=== PATIENT | male | born 1970 | race Caucasian/White ===

== ENCOUNTER 2016-11-29 19:44 | Inpatient (IN) | payer OTHER ==
--- NOTE | ~2016-11-29 | PN ---
Unit #: [id number] #: [id number] Patient: HAILE LIRIANO [id number] [facility] [address] [place] [address] [id number] MR#: [id number] NAME: HAILE LIRIANO ROOM: [facility] Age: 46 Sex: M Admission Date: 11/29/2016 : 1970 Attending Physician: Parmjit Hendrickson M.D. Admitting Physician: Elena Retana PROGRESS NOTES DATE OF SERVICE: 12/03/2016 DISCUSSION Mr. Haile Liriano is a 46-year-old male, seen on 12/03/2016. The patient is tall, well built, continues to be guarded, paranoid, isolative, flat affect, poor hygiene, and grooming. The patient did not show any aggressive behavior, but still having psychotic symptom. The patient denied any thoughts of harming self or others. REVIEW OF SYSTEMS Complete review of systems unremarkable. MENTAL STATUS EXAMINATION General appearance, the patient dressed casually. Attention span and concentration fair. Oriented in place and person. Mood and affect were flat, sad, dysphoric, guarded, paranoid, withdrawn, isolative. Recent and remote memory, poor. Insight and judgment, poor. DIAGNOSIS Schizophrenia, chronic paranoid type. ASSESSMENT AND PLAN Advised to continue with current medication. The patient is scheduled to get injection Sustenna 234 mg deep intramuscular today. After that, the next injection will be in a week that will be 156 mg scheduled on 12/10/2016. We will continue to follow. If needed, consider further adjustment of medication. Dictated by... Elena Retana/carlie TD: 12/04/2016 05:23 JOB #: [id number] Unit #: [id number] #: [id number] Patient: HAILE LIRIANO PROGRESS NOTES Page 1 of 1 X Parmjit Hendrickson MD PROGRESS NOTE
--- NOTE | ~2016-11-29 | PN ---
Unit #: [id number] #: [id number] Patient: HAILE LIRIANO [id number] [facility] [address] [place] [address] [id number] MR#: [id number] NAME: HAILE LIRIANO ROOM: P131 Age: 46 Sex: M Admission Date: 11/29/2016 : 1970 Attending Physician: Parmjit Hendrickson M.D. Admitting Physician: Elena Retana PROGRESS NOTES DATE OF SERVICE: 12/02/2016 DISCUSSION Haile is a 46-year-old male, seen on 12/02/2016. The patient interviewed, chart reviewed, and obtained information from nursing staff. The patient reports that he is feeling better and tolerating medication fairly well, but still seclusive, isolative, guarded, and paranoid, but no aggression. The patient is somewhat withdrawn and isolative. REVIEW OF SYSTEMS Complete review of systems unremarkable. MENTAL STATUS EXAMINATION General appearance, the patient tall and well-built. Attention span and concentration, fair. Oriented in time, place, and person. Mood and affect; sad, dysphoric, and flat. Speech, monotone. Thought process, concrete. The patient denied any thoughts of harming self or others, but guarded and paranoid. Recent and remote memory, poor. Insight and judgment, poor. DIAGNOSIS Schizophrenia, chronic paranoid type. ASSESSMENT AND PLAN Advised to continue with current medication with a plan to give tomorrow Invega Sustenna injection 234 mg IM loading dose after that Invega Sustenna 115 after 7 days. We will monitor for side effects from medication. Continue with current medication and therapeutic protocol. If needed, consider further adjustment of medication. Dictated by... Elena Retana/carlie TD: 12/03/2016 17:43 JOB #: [id number] Unit #: [id number] #: [id number] Patient: HAILE LIRIANO MICHELLE NOTES Page 1 of 1 X Parmjit Hendrickson MD PROGRESS NOTE
--- NOTE | ~2016-11-29 | PN ---
Unit #: [id number] #: [id number] Patient: HAILE LIRIANO [id number] [facility] [address] [place] [address] [id number] I MR#: [id number] NAME: HAILE LIRIANO ROOM: 31 Age: 46 Sex: M Admission Date: 11/29/2016 : 1970 Attending Physician: Parmjit Hendrickson M.D. Admitting Physician: Parmjit Hendrickson M.D. Primary Care Physician: Primary Care Physician Letitia MUNOZ PROGRESS NOTES DATE 12/01/2016 DISCUSSION Haile Liriano is a 46-year-old male seen on 12/01/2016. Patient interviewed. Chart reviewed. Obtained information from nursing staff. Patient was compliant, cooperative. Mood sad, dysphoric, flat affect, guarded. Patient's vital signs stable 97.0, 69, 84/54. Patient was compliant, cooperative but isolative, guarded, flat affect. Patient currently on Invega starting tomorrow. Patient continues to be paranoid but denied any thoughts of harming self or others. Patient is currently on Haldol with a plan to consider switching to Invega injection. Complete review of system unremarkable. MENTAL STATUS EXAMINATION General appearance, patient dressed casually, tall, well-built. Attention span, concentration poor. Oriented in place and person. Mood and affect was labile. Speech slow. Thought process circumstantial. Association guarded, paranoid, delusional, attending to internal stimuli. Recent and remote memory poor. Insight and judgement poor. DIAGNOSIS Schizophrenia, chronic paranoid type. ASSESSMENT/PLAN Advised to continue with current medication with a plan to consider switching from Invega to Invega Sustenna injection. In the meantime, continue with the inpatient programming. Dictated by... Elena Retana/cheryl TD: 12/04/2016 16:54 JOB #: [id number] Unit #: [id number] #: [id number] Patient: HAILE LIRIANO DWIGHTSTEPHEN PROGRESS NOTES Page 1 of 1 X Parmjit Hendrickson MD X PROGRESS NOTE
--- NOTE | ~2016-11-29 | PA ---
Unit #: [id number] #: [id number] Patient: HAILE LIRIANO [id number] [facility] [address] [place] [address] [id number] I MR#: [id number] NAME: HAILE LIRIANO ROOM: P131 Age: 46 Sex: M Admission Date: 11/29/2016 : 1970 Date of Assessment: Attending Physician: Parmjit Hendrickson M.D. Admitting Physician: Parmjit Hendrickson M.D. Primary Care Physician: Primary Care Physician No PSYCHIATRIC ASSESSMENT INFORMANTS The patient reliability, fair informant and chart reliability, good. CHIEF COMPLAINT Hallucination, "my mom wanted me to come here." HISTORY OF PRESENT ILLNESS Mr. Haile Liriano is a 46-year-old male, presented with the above-mentioned complaint. The patient has a history of previous inpatient admission in 2012 in [place]. The patient has a good support from mother, who recently put emergency guardianship for him to get inpatient treatment. The patient's mother reported that the patient stated that "I'm going to kill someone if I can't leave [place]" two days ago, but did not have any plan. The patient denied any suicidal or homicidal ideation, but very guarded, paranoid, and delusional. Paranoid that the people have broken into his house and broken things, believing that he can read time from birthmark on his arm, and obsession with demons and mind control. The patient reported auditory hallucination, hearing voices which do not make sense and visual hallucinations, seeing people. The patient's mother was granted emergency guardianship today. The patient needing inpatient admission at this time for psychiatric stabilization. The patient's mom reported that he was on Invega injection and he did pretty good for several years, but recently the doctor changed it to Abilify injection and he did not do well and decompensated. PAST PSYCHIATRIC HISTORY Remarkable for history of previous treatment as mentioned above. FAMILY HISTORY AND SOCIAL HISTORY The patient has good support from mother. No other psychiatric illness available except for cousin attempted suicide. No history of any abuse. MEDICAL HISTORY Unremarkable for any chronic medical illness except for obesity. Musculoskeletal; muscle strength and tone, no atrophy or abnormal movement. Gait normal. MEDICATION HISTORY None. ALLERGIES No known drug allergies. Unit #: [id number] #: [id number] Patient: HAILE LIRIANO SUBSTANCE ABUSE HISTORY History of tobacco use, age of onset 14 and marijuana, age of onset 20, infrequent, last use 2 weeks ago. REVIEW OF SYSTEMS HEENT: Eyes, clear. Ears, nose, mouth, and throat; clear. CARDIOVASCULAR: Unremarkable. RESPIRATORY: Unremarkable. GI: Unremarkable. : Unremarkable. SKIN: Unremarkable. LYMPH NODE: Unremarkable. NEUROLOGIC: Unremarkable. ENDOCRINE: Unremarkable. HEMATOLOGIC: Unremarkable. ALLERGIC/IMMUNOLOGIC: Unremarkable. MUSCULOSKELETAL: Muscle strength and tone, no atrophy or abnormal movement. Gait normal. MENTAL STATUS EXAMINATION CONSTITUTIONAL: Measurement of vital signs; temperature 98.0, heart rate 86, respiratory rate 16, and blood pressure 110/62. Height 6 feet 4 inches and weight 280 pounds. GENERAL APPEARANCE: The patient dressed casually. The patient did not show any facial deformity. MUSCULOSKELETAL: Please see above. PSYCHIATRIC EXAMINATION Description of speech; regular rate, normal volume, normal articulation, and coherent. Description of thought process, goal directed. Description of association: Intact; guarded; paranoid; reported hallucination, visual and auditory, but denied any thoughts of harming self or others; disorganized behavior; and disorganized thought process. Description of the patient's judgment: Concerning everyday activity, poor. Social situation, poor. Concerning psychiatric condition, poor. Complete mental status examination; oriented in time, place, and person. Recent and remote memory, fair. Attention span and concentration, fair. Language, able to name object and repeat phrases. Fund of knowledge, aware of current event and passive vocabulary intact. Mood and affect, sad and dysphoric. Insight and judgment, fair to poor. ASSETS AND LIABILITIES Assets, the patient is articulate and able to take care of his ADL. Liability, history of hallucination and depression. ADMITTING DIAGNOSES Psychiatric: Schizophrenia, chronic paranoid type, F20.0; rule out major depressive disorder, recurrent, severe; and cannabis abuse, moderate, F12.20. Secondary diagnosis: Deferred. Medical diagnosis: None. Stressors: Psychosocial stressors. PSYCHIATRIC PLAN AND TREATMENT GOAL AND DISCHARGE PLAN Unit #: [id number] #: [id number] Patient: HAILE LIRIANO 1. Advised to admit the patient on the inpatient unit. Provide safe, supportive, and structured environment. 2. Ordered labs; CBC, CMP, UA, and UDS. 3. Advised to start the patient on Invega 3 mg at bedtime and gradually go up to 6 mg at bedtime. The patient to attend all the programing, group therapy, individual therapy, and family session. Plan to consider switching from Invega pills to injectable long-acting medication. TREATMENT GOAL To attain euthymic mood, gain insight into his problem, and learn coping skills. DISCHARGE PLAN Plan to stabilize the patient and consider followup in outpatient program. ESTIMATED LENGTH OF STAY 2 weeks. Dictated by... Parmjit Hendrickson M.D. ZAID/carlie TD: 11/30/2016 20:03 JOB #: [id number] PSYCHIATRIC ASSESSMENT Page 1 of 1 X Parmjit Hendrickson MD X PSYCHIATRIC ASSESSMENT
--- NOTE | ~2016-11-29 | DS ---
Unit #: [id number] #: [id number] Patient: HAILE LIRIANO [id number] [place] [address] [id number] MR#: [id number] NAME: HAILE LIRIANO ROOM: [facility] Age: 46 Sex: M Admission Date: 11/29/2016 : 1970 Discharge Date: 12/05/2016 Attending Physician: Parmjit Hendrickson M.D. DISCHARGE SUMMARY REASON FOR ADMISSION Suicidal ideation. DIAGNOSTIC STUDIES LABORATORY RESULTS: None. HOSPITAL COURSE The patient was admitted to inpatient unit on 11/29/2016 and discharged on 12/05/2016. The patient was treated on the inpatient unit with expressive therapy, psychotherapy, and medication management. The patient responded well with the above modalities of treatment, maintained safe behavior. The patient was started on Invega and switched to Invega injection. The patient was given Invega Sustenna 234 mg as a loading dose and then next dose due Invega Sustenna 156 on 12/10/2016 after that every days. DISCHARGE MEDICATIONS Trazodone 50 mg at bedtime for sleep, Cogentin 1 mg b.i.d. for EPS symptom, Invega 6 mg daily for 1 more week, Invega Sustenna 156 mg on 12/10/2009 then after every days. DISCHARGE DIAGNOSES Psychiatric: 1. Schizophrenia, chronic paranoid type, F20.0. 2. Cannabis abuse, moderate, F12.20. Secondary diagnosis: Deferred. Medical diagnosis: None. Stressors: Psychosocial stressors. DISCHARGE INSTRUCTIONS The patient is to follow up in outpatient clinic as per social work job titles. CONDITION ON DISCHARGE The patient was pleasant and cooperative. Denied any psychotic symptom or any suicidal ideation. PROGNOSIS Guarded. DIET AND ACTIVITY As tolerated. Unit #: [id number] #: [id number] Patient: HAILE LIRIANO Dictated by... Elena Retana/carlie TD: 12/06/2016 21:35 JOB #: [id number] DISCHARGE SUMMARY Page 1 of 1 X Parmjit Hendrickson MD DISCHARGE SUMMARY
--- NOTE | ~2016-11-29 | PN ---
Unit #: [id number] #: [id number] Patient: HAILE LIRIANO [id number] [facility] [address] [place] [address] [id number] MR#: [id number] NAME: HAILE LIRIANO ROOM: P131 Age: 46 Sex: M Admission Date: 11/29/2016 : 1970 Attending Physician: Parmjit Hendrickson M.D. Admitting Physician: Parmjit Hendrickson M.D. Primary Care Physician: Primary Care Physician Letitia MARTINEZ NOTES DATE 11/30/2016 DISCUSSION Haile Liriano is a 46-year-old male, seen on 11/30/2016. The patient interviewed, chart reviewed, and obtained information from the nursing staff. Patient's vital signs, 98.0, 86, 16, and blood pressure 110/62. Height: 6 feet 4 inches. Weight: 280 pounds. The patient continues to be guarded, isolative, disorganized behavior, disorganized thought process, paranoid, delusional, still hearing voices. REVIEW OF SYSTEMS Complete review of systems unremarkable. MENTAL STATUS EXAMINATION General appearance: Patient dressed casually. Withdrawn, isolative. Attention span and concentration, poor. Oriented to place and person. Mood and affect, sad and dysphoric. Speech, monotone. Thought process, concrete. The patient denied any thoughts of harming self or others but having delusions, hallucinations, as mentioned above. Recent and remote memory, poor. Insight and judgment, poor. DIAGNOSIS Schizophrenia, chronic paranoid type. ASSESSMENT/PLAN Advised to continue with the current medication and therapeutic protocol and will monitor response to medication, and make further adjustment of medication. Dictated by... Elena Retana/stewart Unit #: [id number] #: [id number] Patient: HAILE LIRIANO TD: 12/04/2016 06:36 JOB #: [id number] ALEXANDER MARTINEZ NOTES Page 1 of 1 X Parmjit Hendrickson MD PROGRESS NOTE
--- NOTE | ~2016-11-29 | PN ---
Unit #: [id number] #: [id number] Patient: HAILE LIRIANO [id number] [facility] [address] [place] [address] [id number] I MR#: [id number] NAME: HAILE LIRIANO ROOM: P131 Age: 46 Sex: M Admission Date: 11/29/2016 : 1970 Attending Physician: Parmjit Hendrickson M.D. Admitting Physician: Parmjit Hendrickson M.D. Primary Care Physician: Primary Care Physician Letitia MUNOZ PROGRESS NOTES DATE 12/04/2016 DISCUSSION Haile Liriano is a 46-year-old male seen on 12/04/2016. Patient interviewed. Chart reviewed. Obtained information from nursing staff. Patient was compliant, cooperative, able to answer questions appropriately. Patient received Invega shot yesterday. Patient will be getting next shot of 154 mg Invega Sustenna in 7 days. Plan to consider discharge tomorrow if patient continues to do well. Plan to follow up in outpatient program. Complete review of system unremarkable. MENTAL STATUS EXAMINATION General appearance, patient dressed casually. Attention span, concentration fair. Oriented in place and person. Mood and affect labile. Speech monotone. Thought process concrete. Patient denied any thoughts of harming self or others but guarded. Recent and remote memory poor. Insight and judgement poor. DIAGNOSIS Schizophrenia, chronic paranoid type. ASSESSMENT/PLAN Advised to continue with current medication and therapeutic protocol. Will monitor response to medication and make further adjustment of medication if needed. Dictated by... Elena Retana/cheryl TD: 12/05/2016 17:50 JOB #: [id number] Unit #: [id number] #: [id number] Patient: HAILE LIRIANO PROGRESS NOTES Page 1 of 1 X Parmjit Hendrickson MD PROGRESS NOTE
--- NOTE | ~2016-11-29 | HP ---
Unit #: [id number] #: [id number] Patient: HAILE LIRIANO [id number] [place] [address] [id number] I MR#: [id number] NAME: HAILE LIRIANO ROOM: P131 Age: 46 Sex: M Admission Date: 11/29/2016 : 1970 Attending Physician: Parmjit Hendrickson M.D. Admitting Physician: Parmjit Hendrickson M.D. Primary Care Physician: Primary Care Physician No HISTORY AND PHYSICAL HISTORY OF PRESENT ILLNESS Haile Gates is a 46 year old admitted to [address] [place] [address] reporting auditory hallucinations. He has been noncompliant with his Invega. PAST MEDICAL HISTORY Nothing significant. PAST SURGICAL HISTORY Nothing reported. ALLERGIES No known drug allergies. SOCIAL HISTORY Smokes 1 pack per day. Denies alcohol. Admits to using marijuana on occasion. FAMILY HISTORY Medically noncontributory. REVIEW OF SYSTEMS CONSTITUTIONAL: No fever or chills. HEENT: Denies any sore throat, ear pain or runny nose. CARDIOVASCULAR: Denies chest pain, irregular heart rhythm or palpitations. CHEST: Denies shortness of breath or cough. No hemoptysis. GASTROINTESTINAL: Denies nausea, vomiting, diarrhea or chronic constipation. ENDOCRINE: Denies history of increased thirst or urination. No recent significant weight loss or gain. GENITOURINARY: Denies dysuria, frequency, or hematuria. SKIN: Denies any rashes. HEMATOLOGIC: Denies history of increased bleeding or bruising. MUSCULOSKELETAL: Denies any hot, swollen joints. No generalized muscle pain. NEUROLOGIC: Denies problems with vision or speech. No frequent, severe headaches. No numbness, tingling or weakness in any extremities. Denies loss of bladder or bowel control. CURRENT MEDICATIONS 1. Invega 6 mg daily. 2. Nicotine patch 14 mg daily. 3. Motrin p.r.n. 4. Milk of Magnesia p.r.n. Unit #: [id number] #: [id number] Patient: HAILE LIRIANO 5. Tylenol p.r.n. 6. Maalox p.r.n. 7. Cogentin 1 mg b.i.d. 8. Haldol 5 mg b.i.d. 9. Trazodone 75 mg q.h.s. PHYSICAL EXAMINATION GENERAL: Alert, well-nourished, in no apparent distress. VITAL SIGNS: Blood pressure 110/62, heart rate 86, respirations 16, temperature 98.6. WEIGHT: 280. HEIGHT: 6 feet 4 inches. SKIN: Warm and dry without rash or lesion. HEENT: Normocephalic. TMs not viewed. Oral and nasal passages clear. Conjunctivae clear. PERRLA. EOMs intact. NECK: Supple without lymphadenopathy or thyromegaly. HEART: Regular rate and rhythm without murmur. LUNGS: Clear. ABDOMEN: Soft, nontender. : Not done. EXTREMITIES: No evidence of cyanosis, clubbing or edema. Moves all without focal deficit. NEUROLOGICAL: Grossly within normal limits. Cranial Nerves: II: Visual [place] are intact. III, IV AND : Extraocular movements are intact. Pupils are equal, round and reactive to light. V: Facial sensation is grossly normal. VII: Facial movements and expression are normal. VIII: Auditory acuity grossly intact. IX, X: Uvula is midline. Phonation is normal. XI: Patient shrugs shoulders and turns head normally. XII: Tongue protrudes in the midline. Sensory and Motor Function: Sensory and motor sensation is grossly normal. Motor: moves all extremities well. Coordination: Gait is normal. Deep Tendon Reflexes: Intact. IMPRESSION Psychiatric admission. RECOMMENDATIONS PSYCHIATRIC: Per psychiatrist. MEDICAL: See no contraindications to participate in facility's activities. MEDICAL PROGNOSIS Good. MEDICAL CONDITION Stable. Dictated by... Funmi Logan P.A.-C. for Elena Vences/cheryl TD: 11/30/2016 17:24 JOB #: [id number] Unit #: [id number] #: [id number] Patient: HAILE LIRIANO HISTORY AND PHYSICAL Page 1 of 1 X Funmi Logan HISTORY AND PHYSICAL
== END 2016-12-05 18:13 | disposition home or self-care (01) | DRG 885 ==
LOC: P1S 19:44
DX: F20.0 Paranoid schizophrenia (principal); F33.2 Major depressive disorder, recurrent severe without psychotic features; F12.20 Cannabis dependence, uncomplicated; F17.210 Nicotine dependence, cigarettes, uncomplicated